=== PATIENT | male | born 1955 | race Caucasian/White ===

== ENCOUNTER 2025-06-22 19:32 | Inpatient (IN) | payer MEDICARE, MEDICAID ==
[~2025-06-22] VITALS: Ht 182.9 cm; Wt 80.0 kg
[2025-06-22 20:42] VITALS: PULSE 69; RESP 14; O2SAT 96
[2025-06-22 20:59] LABS: Hematocrit 31.6 % (41.0-53.0); Hemoglobin 10.5 g/dL (13.5-17.5); Mean Corpuscular Hemoglobin 27.6 pg (28.0-32.0); Mean Corpuscular Volume 83.1 fL (80.0-100.0); Nucleated Red Blood Cells % 0.0 %
--- NOTE | 2025-06-22 20:59 | DVH ---
EXAM: XY CHEST PORTABLE HISTORY: LEG SWELLING TECHNIQUE: 1 view of the chest COMPARISON: None FINDINGS/IMPRESSION: LUNGS: No pleural effusion, consolidation, or pneumothorax MEDIASTINUM: Unremarkable BONES: No acute osseous abnormality OTHER: None
[2025-06-22 21:19] LABS: Alanine Aminotransferase 13 U/L (7-40); Albumin 3.9 g/dL (3.2-4.8); Alkaline Phosphatase 65 U/L (46-116); Anion Gap 8 (5-15); BUN/Creatinine Ratio 17.2 (10.0-20.0); Blood Urea Nitrogen 23 mg/dL (9-23); Calcium 8.8 mg/dL (8.7-10.4); Carbon Dioxide 28 mmol/L (20-31); Chloride 102 mmol/L (98-107); Glucose 99 mg/dL (74-106); Potassium 4.2 mmol/L (3.5-5.1); Sodium 138 mmol/L (136-145); Total Protein 6.6 g/dL (5.7-8.2)
[2025-06-22 21:21] LABS: Bilirubin, Total 0.2 mg/dL (0.2-1.0)
--- NOTE | 2025-06-22 21:33 | ED.PDOC ---
Musculoskeletal HPI Comments HPI: 69 y/o M, with PMHx of Parkinson's, Schizophrenia, Bipolar disorder, CKF, and HLD is BIBA for CC of extremity swelling. EMS reports, patient is coming from [facility] where he was transferred as per for admission d/t bilateral lower extremity swelling with associated unsteady gait x7days. At this time patient has no complaints. No other symptoms or modifying factors are obtainable at this time. Initial Vitals BP: HR: RR: O2 Sat: Temp: Past Medical history: Parkinson's, Schizophrenia, Bipolar disorder, CKF, HLD Past Surgical history: DENIES ANY Medications: DENIES ANY Social History: Denies smoking, ETOH, and drug use. Allergies: NKDA HPI: Poor Historian. Patient sent from facility to our hospital per Dr. Porter to be admitted to the hospital for further evaluation and treatment of bilateral lower extremity edema. Patient himself denies any symptoms or distress. REVIEW OF SYSTEMS: CONSTITUTIONAL: Denies acute: fever, diaphoresis, chills, generalized weakness. HEAD: Denies acute: headache, photophobia Eyes: Denies acute: Double vision, vision loss, eye pain, eye discharge. EARS: Denies acute: tinnitus, hearing loss, ear discharge, ear pain, THROAT: Denies acute: sore throat, swelling, difficulty swallowing , pain with swallowing, change in voice. NECK: Denies acute: neck pain, neck swelling, stiff neck. HEART: Denies acute : chest pain, palpitations, LUNGS: Denies acute: SOB, wheezing, cough, hemoptysis ABDOMEN: Denies acute: abdominal pain, Nausea, Vomiting, diarrhea, melena , hematemesis, hematochezia SKIN: Denies acute: rash, redness, lesions, itchiness. EXTREMITIES: Denies acute: calf pain, numbness, tingling, weakness, denies pain in extremity. Denies acute: Low back pain. Neuro: Denies acute: focal neurological deficit, motor or sensory focal neurological deficit, tremors, seizure like activity, confusion, dizziness, change in mental status, loss of bowel or bladder function, cauda equina like symptoms. : Denies acute: dysuria, hematuria, flank pain, increase in urinary frequency. PSYCH: Denies acute: hallucination, suicidal ideation, homicidal ideation. PHYSICAL EXAM: General: ----no----acute distress, awake and alert. Head: normocephalic, atraumatic. Neck: supple, trachea is midline, no swelling. Throat: Normal phonation. Eyes:, no erythema, no purulent discharge, no proptosis, no icterus. Heart: regular rate, regular rhythm, no significant murmur appreciated. Lungs: no apparent respiratory distress, Able to speak in full sentences. No wheezing, no rhonchi, no crackles. No stridors Clear to auscultation bilaterally. Abdomen: non tender to palpation, non distended, soft, no guarding, no rebound, + bowel sounds. Neuro: Awake, Alert, oriented to name, self, situation, follows commands GCS=15. Speech is normal. Skin: no petechia, no purpura, no cyanosis, non-pale, not jaundice. Lower extremities: --2/4 bilateral - Pitting edema no deformity, no focal swelling, no calf TTP. Makes eye contact. Face: no apparent facial droop. ED COURSE: DISCLAIMER: This medical document was created using an electronic medical record system with voice recognition software and computerized dictation system. Although this document has been carefully reviewed, there might still be some phonetic and typographical errors. Occasional wrong-word or "sound-alike" substitutions may have occurred due to the inherent limitations of voice recognition software. These areas are purely typographical due to imperfections of the software prog janel and do not reflect any compromise in the patient's medical care. Please read the chart carefully and recognize, using context, where these substitutions have occurred. Chief Complaint: Extremity Swelling Time Seen by MD: 21:20 Reviewed Notes: Nurses Notes, Shore Man Notes, Medications, Allergies Allergies: Coded Allergies: NO KNOWN ALLERGIES (Unverified , 06/22/25) Home Meds Reported Medications Ferrous Sulfate (Ferrous Sulfate) 325 Mg Tab, 325 MG PO BIDWM for 30 Days, MG 06/23/25 Docusate Sodium (Colace) 100 Mg Cap, 1 CAP PO BID, #30 CAP 06/23/25 Divalproex Sodium (Depakote Er) 250 Mg Tab, 1 TAB PO TIDWM, #30 TAB 2 Refills 06/23/25 Benztropine Mesylate (Benztropine Mesylate) 0.5 Mg Tab, 0.5 MG PO BID, MG 06/23/25 Atorvastatin Calcium (ATORVASTATIN CALCIUM) 20 Mg Tab, 1 TAB PO HS, #30 TAB 5 Refills 06/23/25 Ascorbic Acid (Ascorbic Acid) 500 Mg Tab, 500 MG PO DAILY for 30 Days, MG 06/23/25 Amlodipine Besylate (Amlodipine Besylate) 5 Mg Tab, 10 MG PO DAILY for 30 Days, MG 06/23/25 Aripiprazole (Abilify) 20 Mg Tab, 30 MG PO DAILY, TAB 06/23/25 Information Source: Patient, Emergency Med Personnel Mode of Arrival: EMS Location: Bilateral Extremity Location: Leg Timing: Days Prehospital treatment: None Severity: Moderate Able to Move Extremity: No Bear Weight: Limited Pain: None Mechanism: Spontaneous Circumstances: Spontaneous Onset of Symptoms: Spontaneous Symptoms: Swelling DVT Risk Factors: NONE Last Tetanus: Unknown Associated signs and symptoms: Swelling Was a procedure done? Was a procedure done?: No Differential Diagnosis EXT Differential Diagnosis: CHF, Deep Vein Thrombosis, Neurovascular injury X-Ray, Labs, Meds, VS Vital Signs Date Time Temp Pulse Resp B/P (MAP) Pulse Ox O2 Delivery O2 Flow Rate FiO2 06/22/25 20:42 69 14 107/60 (76) 96 06/22/25 20:42 69 14 96 Room Air* 0 21 06/22/25 20:00 64 06/22/25 19:35 98.2 74 16 101/54 97 98.2 Lab Test 06/22/25 21:51 06/22/25 21:40 06/22/25 20:43 Range/Units Urine Color Light-yellow Yellow Urine Clarity Clear Clear Urine pH 6.0 5.0-9.0 Urine Specific [place] 1.011 1.001-1.035 Urine Protein Negative Negative Urine Ketones Negative Negative Urine Blood Negative Negative /uL Urine Nitrite Negative Negative Urine Bilirubin Negative Negative Urine Urobilinogen Normal Negative mg/dL Urine Leukocyte Esterase Negative Negative /uL Urine RBC None seen 0 - 3 /hpf Urine Microscopic WBC < 1 0-3 /HPF Urine Squamous Epithelial Cells None seen <5 /hpf Urine Bacteria None seen None Seen /hpf Urine Hyaline Casts Few 0 - 2 /lpf Urine Glucose Normal Normal mg/dL Troponin I High Sensitivity 14 13 </=54 ng/L Thyroid Stimulating Hormone (TSH) 3.16 0.55-4.78 uIU/mL White Blood Count 7.6 4.4-10.8 10^3/uL Red Blood Count 3.80 L 4.5-5.90 10^6/uL Hemoglobin 10.5 L 13.5-17.5 g/dL Hematocrit 31.6 L 41.0-53.0 % Mean Corpuscular Volume 83.1 80.0-100.0 fL Mean Corpuscular Hemoglobin 27.6 L 28.0-32.0 pg Mean Corpuscular Hemoglobin Concent 33.2 32.0-36.0 g/dL Red Cell Distribution Width 14.2 11.8-14.3 % Platelet Count 271 140-450 10^3/uL Mean Platelet Volume 7.3 6.9-10.8 fL Neutrophils (%) (Auto) 64.4 37.0-80.0 % Lymphocytes (%) (Auto) 21.5 10.0-50.0 % Monocytes (%) (Auto) 10.7 0.0-12.0 % Eosinophils (%) (Auto) 2.5 0.0-7.0 % Basophils (%) (Auto) 0.9 0.0-2.0 % Neutrophils # (Auto) 4.9 1.6-8.6 10 ^3/uL Lymphocytes # (Auto) 1.6 0.4-5.4 10 ^3/uL Monocytes # (Auto) 0.8 0-1.3 10 ^3/uL Eosinophils # (Auto) 0.2 0-0.8 10 ^3/uL Basophils # (Auto) 0.1 0-0.2 10 ^3/uL Nucleated Red Blood Cells 0.0 % D-Dimer, Quantitative 0.26 0.0-0.49 mg/L FEU Sodium Level 138 136-145 mmol/L Potassium Level 4.2 3.5-5.1 mmol/L Chloride Level 102 98-107 mmol/L Carbon Dioxide Level 28 20-31 mmol/L Anion Gap 8 5-15 Blood Urea Nitrogen 23 9-23 mg/dL Creatinine 1.34 H 0.700-1.30 mg/dL Glomerular Filtration Rate Calc 57 >90 mL/min BUN/Creatinine Ratio 17.2 10.0-20.0 Serum Glucose 99 74-106 mg/dL Lactic Acid Level 1.0 0.4-2.0 mmol/L Calcium Level 8.8 8.7-10.4 mg/dL Total Bilirubin 0.2 0.2-1.0 mg/dL Aspartate Amino Transferase (AST) 21 13-40 U/L Alanine Aminotransferase (ALT) 13 7-40 U/L Alkaline Phosphatase 65 46-116 U/L C-Reactive Protein High Sensitivity 0.11 <1.0 mg/dL B-Type Natriuretic Peptide 92.62 0-100 pg/mL Total Protein 6.6 5.7-8.2 g/dL Albumin 3.9 3.2-4.8 g/dL [place] [address] Ph: [phone] DIAGNOSTIC IMAGING Diagnostic Imaging Report : [id number] Signed PATIENT: SHIN BROWNACCT: [id number] UNIT: [id number] : 1955 LOC: ER ROOM / BED: / AGE / SEX: 69 / M ADM STATUS: REG ER SERVICE 24 ORDERING PHYSICIAN: OCTAVIO BIRCH DO PROCEDURE(s): CXRP - CHEST PORTABLE REASON: LEG SWELLING ORDER NUMBER(s): [id number], ACCESSION NUMBER(s): [id number] EXAM: XY CHEST PORTABLE HISTORY: LEG SWELLING TECHNIQUE: 1 view of the chest COMPARISON: None FINDINGS/IMPRESSION: LUNGS: No pleural effusion, consolidation, or pneumothorax MEDIASTINUM: Unremarkable BONES: No acute osseous abnormality OTHER: None ATED BY: OLIVER CARRION MD DICTATED DATE/TIME: 06/22/252056 SIGNED BY: OLIVER CARRION MD SIGNED DATE/TIME: 06/22/252056 CC: Time of 1ST Reevaluation: 21:50 Reevaluation 1ST: Unchanged Patient Education/Counseling: Diagnosis, Treatment Family Education/Counseling: No Family Present Comments MDM: patient presented with the above HPI.---leg edema---workup was initiated. patient was found with the above mentioned diagnosis. the following medications were ordered: please refer to order lists of meds and tests obtained by myself Dr. Birch. Patient ED course and VS have been stabilized. Patient has been reassessed in the ED and remained in a stable condition. Pertinent incidental findings were discussed with the patient and/or family. Patient/family voices understanding and is agreeable with plan. Patient has been observed in the ED adequate length of time to insure improvement/stability. Escalation of care considered: Consideration of escalation to observation or admission Patient was ADMITTED to the medicine team for further evaluation and treatment of their presentation. All the reports of any imaging studies that were ordered by myself were reviewed by myself. Sepsis Sepsis Reasesment Focused Exam Orders: Laboratory Tests 06/22/25 20:43: Lactic Acid Level 1.0 Departure 1 Departure Time of Disposition: 21:52 Impression: Primary Impression: Bilateral leg edema Disposition: ADMITTED INPATIENT Admit to: [facility] Condition: Guarded Discharged With: Self Critical Care Note Critical Care Time?: No I personally scribed for OCTAVIO BIRCH DO ([email or web address]) on 06/22/25 at 21:33. Electronically submitted by Evelyn Nixon ([email or web address]). I personally scribed for OCTAVIO BIRCH DO ([email or web address]) on 06/22/25 at 21:40. Electronically submitted by Evelyn Nixon ([email or web address]). OCTAVIO BIRCH DO Jun 22, 2025 21:33
[2025-06-22 22:27] LABS: Urine Protein, UAD Negative (Negative)
--- NOTE | 2025-06-22 22:59 | DVH ---
Bilateral lower extremity venous duplex Clinical History: swelling Comparison: None Findings: Duplex Doppler evaluation of the deep venous systems of both lower extremities from the common femora l veins to the popliteal veins including color Doppler and spectral/pulsed waveform analysis was perf ormed. RIGHT SIDE: The common femoral vein demonstrates appropriate compressibility and waveform variability. There is compressibility/patency of the great saphenous vein at the proximal thigh. The femoral vein demonstrates appropriate compressibility and waveform variability. The deep femoral vein demonstrates appropriate compressibility and waveform variability. The popliteal vein demonstrates appropriate compressibility and waveform variability. LEFT SIDE: The common femoral vein demonstrates appropriate compressibility and waveform variability. There is compressibility/patency of the great saphenous vein at the proximal thigh. The femoral vein demonstrates appropriate compressibility and waveform variability. The deep femoral vein demonstrates appropriate compressibility and waveform variability. The popliteal vein demonstrates appropriate compressibility and waveform variability. IMPRESSION: 1. No right or left femoropopliteal venous thrombosis.
[2025-06-22] MEDS ORDERED: ONDANSETRON HCL 4 MG/2 ML VIAL IV PRN (23:30)
[2025-06-22] MEDS ORDERED: ACETAMINOPHEN 325 MG TAB PO PRN (23:30)
[2025-06-23] VITALS (7 sets, daily range): BP systolic 98–147; BP diastolic 66–89; PULSE 55–77; RESP 15–18; TEMP 98–98.7; O2SAT 96–98
[2025-06-23] MEDS: FUROSEMIDE 20 MG/2 ML VIAL IV ONE (02:33)
[2025-06-23] MEDS ORDERED: ARIP20TA4 PO (04:30)
[2025-06-23] MEDS ORDERED: DIVA-92 PO (04:49)
[2025-06-23] MEDS ORDERED: ATOR20TA50 PO (04:49)
[2025-06-23] MEDS ORDERED: BENZ0.5T PO (04:49)
[2025-06-23] MEDS ORDERED: FERR325T24 PO (04:49)
[2025-06-23] MEDS ORDERED: ASCO500T16 PO (04:49)
[2025-06-23] MEDS ORDERED: DOCU-94 PO (04:49)
[2025-06-23] MEDS ORDERED: AMLO1TAB22 PO (04:49)
--- NOTE | 2025-06-23 04:50 | DVHHP2 ---
History of Present Illness Reason for Visit: Leg swelling History of Present Illness 69-year-old male presents for evaluation of leg swelling. Patient presents with a seven day history of bilateral lower extremity swelling. Patient denies tenderness. No fever or chills. Denies shortness of breath or chest pain. No history of congestive heart failure. Past Medical History Schizophrenia, bipolar, Parkinson's disease, chronic kidney disease, hypertension Past Surgical History Denies Family History Noncontributory Smoke: No ALCOHOL: none Drugs: None Lives: with Family Review of Systems Review of Systems Review of systems are currently negative otherwise addressed in HPI. Allergies: Coded Allergies: NO KNOWN ALLERGIES (Unverified , 06/22/25) Medications Current Medications Medications Dose Ordered Sig/Mauricio Route Start Time Stop Time Status Last Admin Dose Admin Amlodipine Besylate 10 mg DAILY PO 06/23/25 10:00 Divalproex Sodium 250 mg BID PO 06/23/25 10:00 Atorvastatin Calcium 20 mg HS PO 06/23/25 22:00 Furosemide 20 mg DAILY PO 06/23/25 10:00 Ondansetron HCl 4 mg Q4HP PRN IV 06/22/25 23:30 Enoxaparin Sodium 40 mg DAILY SC 06/23/25 10:00 Acetaminophen 650 mg Q6HP PRN PO 06/22/25 23:30 Exam Vital Signs Vital Signs Date Time Temp Pulse Resp B/P (MAP) Pulse Ox O2 Delivery O2 Flow Rate FiO2 06/23/25 03:33 75 18 97 Room Air* 0 21 06/23/25 02:33 116/67 06/22/25 23:44 98.5 98.5 Exam Gen: 69-year-old male in no apparent distress Skin: Warm, dry, normal color and texture, no rash. HEENT: Normocephalic atraumatic, mucous membranes moist and pink. Neck: Cervical and supraclavicular nodes normal without enlargement, trachea is midline, thyroid gland is normal without masses. Pulmonary: Clear to auscultation and percussion bilaterally. Cardiac: Regular rate and rhythm. No murmur Abdomen: Soft, nontender, nondistended, bowel sounds present all 4 quadrants, no guarding, no rigidity, no organomegaly. Extremities: No cyanosis, clubbing, no edema Neuro: Cranial nerves II through XII grossly intact, normal affect and speech, no focal motor deficits. Labs/Xrays ORDERING PHYSICIAN: OCTAVIO BIRCH DO PROCEDURE(s): CXRP - CHEST PORTABLE REASON: LEG SWELLING ORDER NUMBER(s): [id number], ACCESSION NUMBER(s): [id number] EXAM: XY CHEST PORTABLE HISTORY: LEG SWELLING TECHNIQUE: 1 view of the chest COMPARISON: None FINDINGS/IMPRESSION: LUNGS: No pleural effusion, consolidation, or pneumothorax MEDIASTINUM: Unremarkable BONES: No acute osseous abnormality OTHER: None RING PHYSICIAN: OCTAVIO BIRCH DO PROCEDURE(s): BLDVT - BiLat Lower DVT REASON: swelling ORDER NUMBER(s): [id number], ACCESSION NUMBER(s): [id number] Bilateral lower extremity venous duplex Clinical History: swelling Comparison: None Findings: Duplex Doppler evaluation of the deep venous systems of both lower extremities from the common femoral veins to the popliteal veins including color Doppler and spectral/pulsed waveform analysis was performed. RIGHT SIDE: The common femoral vein demonstrates appropriate compressibility and waveform variability. There is compressibility/patency of the great saphenous vein at the proximal thigh. The femoral vein demonstrates appropriate compressibility and waveform variability. The deep femoral vein demonstrates appropriate compressibility and waveform variability. The popliteal vein demonstrates appropriate compressibility and waveform variability. LEFT SIDE: The common femoral vein demonstrates appropriate compressibility and waveform variability. There is compressibility/patency of the great saphenous vein at the proximal thigh. The femoral vein demonstrates appropriate compressibility and waveform variability. The deep femoral vein demonstrates appropriate compressibility and waveform variability. The popliteal vein demonstrates appropriate compressibility and waveform variability. IMPRESSION: 1. No right or left femoropopliteal venous thrombosis. Labs Test 06/22/25 21:51 06/22/25 21:40 06/22/25 20:43 Range/Units Urine Color Light-yellow Yellow Urine Clarity Clear Clear Urine pH 6.0 5.0-9.0 Urine Specific [place] 1.011 1.001-1.035 Urine Protein Negative Negative Urine Ketones Negative Negative Urine Blood Negative Negative /uL Urine Nitrite Negative Negative Urine Bilirubin Negative Negative Urine Urobilinogen Normal Negative mg/dL Urine Leukocyte Esterase Negative Negative /uL Urine RBC None seen 0 - 3 /hpf Urine Microscopic WBC < 1 0-3 /HPF Urine Squamous Epithelial Cells None seen <5 /hpf Urine Bacteria None seen None Seen /hpf Urine Hyaline Casts Few 0 - 2 /lpf Urine Glucose Normal Normal mg/dL Troponin I High Sensitivity 14 </=54 ng/L Thyroid Stimulating Hormone (TSH) 3.16 0.55-4.78 uIU/mL White Blood Count 7.6 4.4-10.8 10^3/uL Red Blood Count 3.80 L 4.5-5.90 10^6/uL Hemoglobin 10.5 L 13.5-17.5 g/dL Hematocrit 31.6 L 41.0-53.0 % Mean Corpuscular Volume 83.1 80.0-100.0 fL Mean Corpuscular Hemoglobin 27.6 L 28.0-32.0 pg Mean Corpuscular Hemoglobin Concent 33.2 32.0-36.0 g/dL Red Cell Distribution Width 14.2 11.8-14.3 % Platelet Count 271 140-450 10^3/uL Mean Platelet Volume 7.3 6.9-10.8 fL Neutrophils (%) (Auto) 64.4 37.0-80.0 % Lymphocytes (%) (Auto) 21.5 10.0-50.0 % Monocytes (%) (Auto) 10.7 0.0-12.0 % Eosinophils (%) (Auto) 2.5 0.0-7.0 % Basophils (%) (Auto) 0.9 0.0-2.0 % Neutrophils # (Auto) 4.9 1.6-8.6 10 ^3/uL Lymphocytes # (Auto) 1.6 0.4-5.4 10 ^3/uL Monocytes # (Auto) 0.8 0-1.3 10 ^3/uL Eosinophils # (Auto) 0.2 0-0.8 10 ^3/uL Basophils # (Auto) 0.1 0-0.2 10 ^3/uL Nucleated Red Blood Cells 0.0 % D-Dimer, Quantitative 0.26 0.0-0.49 mg/L FEU Sodium Level 138 136-145 mmol/L Potassium Level 4.2 3.5-5.1 mmol/L Chloride Level 102 98-107 mmol/L Carbon Dioxide Level 28 20-31 mmol/L Anion Gap 8 5-15 Blood Urea Nitrogen 23 9-23 mg/dL Creatinine 1.34 H 0.700-1.30 mg/dL Glomerular Filtration Rate Calc 57 >90 mL/min BUN/Creatinine Ratio 17.2 10.0-20.0 Serum Glucose 99 74-106 mg/dL Lactic Acid Level 1.0 0.4-2.0 mmol/L Calcium Level 8.8 8.7-10.4 mg/dL Total Bilirubin 0.2 0.2-1.0 mg/dL Aspartate Amino Transferase (AST) 21 13-40 U/L Alanine Aminotransferase (ALT) 13 7-40 U/L Alkaline Phosphatase 65 46-116 U/L C-Reactive Protein High Sensitivity 0.11 <1.0 mg/dL B-Type Natriuretic Peptide 92.62 0-100 pg/mL Total Protein 6.6 5.7-8.2 g/dL Albumin 3.9 3.2-4.8 g/dL SEPSIS Sepsis Screen Date sepsis recognized/suspect: Jun 22, 2025 Time Sepsis recognized/suspect: 2046 Recent Procedure: No On Antibiotic Therapy: No Respiratory Rate >20: No Heart Rate >90: No Temp<36 C (96.8 F) or >38.3 C: No SBP <90 or MAP <65 mmHG: No New Acute Mental Status Change: No Is the patient on CPAP, BIPAP,: No Physician Orders Bilat Lower Dvt (06/22/25 21:54) Amlodipine Tablet (Norvasc Tablet) (06/23/25 10:00) Divalproex Dr Tablet (Depakote "Dr" Tabl (06/23/25 10:00) Atorvastatin (Lipitor) (06/23/25 22:00) Furosemide Tablet (Lasix Tablet) (06/23/25 10:00) Basic Metabolic Panel (06/23/25 04:00) Admit (06/22/25 23:21) Ondansetron Hcl (Zofran) (06/22/25 23:30) Enoxaparin Sodium (Lovenox) (06/23/25 10:00) Cardiac Diet-2gna,Lofat,Lochol (06/23/25 Breakfast) Echo 2d Mode Cardiac Dop (06/22/25 23:21) Condition: Stable (06/22/25 23:21) Acetaminophen Tablet (Tylenol Tablet) (06/22/25 23:30) Bedrest With Bathroom Privileg (06/22/25 23:21) Mrsa Screen (06/23/25 03:34) Vital Signs Date Time Temp Pulse Resp B/P (MAP) Pulse Ox O2 Delivery O2 Flow Rate FiO2 06/23/25 03:33 75 18 97 Room Air* 0 21 06/23/25 02:33 116/67 06/23/25 01:02 54 06/22/25 23:46 51 14 116/67 (83) 95 06/22/25 23:44 98.5 51 14 116/67 (83) 95 98.5 Laboratory Tests Test 06/22/25 20:43 Lactic Acid Level 1.0 mmol/L (0.4-2.0) White Blood Count 7.6 10^3/uL (4.4-10.8) Medications Medications Dose Ordered Sig/Mauricio Route Start Time Stop Time Status Last Admin Dose Admin Furosemide 20 mg ONCE ONCE IV 06/22/25 23:30 06/22/25 23:31 DC 06/23/25 02:33 20 MG Assessment/Plan Assessment/Plan Assessment Bilateral lower extremity edema Hypertension Plan Admit the patient to [facility] to the hospitalist Lasix trial Echocardiogram pending Resume home medications Continue treatment per orders. Plan discussed with: Patient My Orders Orders - KING LUONG Procedure Category Date Status Time Amlodipine Tablet PHA 06/23/25 In Process (Norvasc Tablet) 10:[address] Tablet PHA 06/23/25 In Process (Depakote "Dr" Tabl 10:00 Atorvastatin (Lipitor) PHA 06/23/25 In Process 22:00 Furosemide Tablet PHA 06/23/25 In Process (Lasix Tablet) 10:00 Basic Metabolic Panel LAB 06/23/25 Logged 04:00 Admit ADMIT 06/22/25 Transmitted 23:21 Ondansetron Hcl PHA 06/22/25 In Process (Zofran) 23:30 Enoxaparin Sodium PHA 06/23/25 In Process (Lovenox) 10:00 Cardiac DIET 06/23/25 Transmitted Diet-2gna,Lofat,Lochol Breakfast Echo 2d Mode Cardiac US 06/22/25 Logged DOP 23:21 Condition: Stable TANVI 06/22/25 In Process 23:21 Acetaminophen Tablet PHA 06/22/25 In Process (Tylenol Tablet) 23:30 Bedrest With Bathroom TANVI 06/22/25 In Process Privileg 23:21 Mrsa Screen LIU 06/23/25 Uncollected 03:34 Date of Service: Jun 22, 2025 Billing Provider: KING LUONG Common Visit Codes: [id number] INP/OBS CARE (MOD) KING LUONG Jun 23, 2025 04:50
[2025-06-23 06:25] LABS: Chloride 102 mmol/L (98-107); Potassium 3.6 mmol/L (3.5-5.1); Sodium 140 mmol/L (136-145)
[2025-06-23 06:26] LABS: Anion Gap 11 (5-15); Calcium 9.2 mg/dL (8.7-10.4); Carbon Dioxide 27 mmol/L (20-31)
[2025-06-23 06:31] LABS: BUN/Creatinine Ratio 15.4 (10.0-20.0); Blood Urea Nitrogen 18 mg/dL (9-23); Glucose 89 mg/dL (74-106)
[2025-06-23] MEDS: ENOXAPARIN SOD 40 MG/0.4 ML SYRINGE SC SCH (09:28)
[2025-06-23] MEDS: FUROSEMIDE 20 MG TAB PO SCH (09:29)
--- NOTE | 2025-06-23 14:55 | DVHPN2 ---
Reviewed: Care Plan, H&P, Labs, Medications, Previous Orders, Radiology Changes from previous H/P or p: No Changes Objective Vitals Vital Signs Date Time Temp Pulse Resp B/P (MAP) Pulse Ox O2 Delivery O2 Flow Rate FiO2 06/23/25 12:50 98.0 57 16 147/81 (103) 96 98.0 06/23/25 08:30 Room Air* 0 21 Intake/Output Intake and Output 06/23/25 07:00 Intake Total 0 ml Output Total 800 ml Balance -800 ml Intake Oral 0 ml Output Urine Total 800 ml # Voids 1 Medications Current Medications Medications Dose Ordered Sig/Mauricio Route Start Time Stop Time Status Last Admin Dose Admin Amlodipine Besylate 10 mg DAILY PO 06/23/25 10:00 06/23/25 09:29 10 MG Divalproex Sodium 250 mg BID PO 06/23/25 10:00 06/23/25 09:30 250 MG Atorvastatin Calcium 20 mg HS PO 06/23/25 22:00 Furosemide 20 mg DAILY PO 06/23/25 10:00 06/23/25 09:29 20 MG Ondansetron HCl 4 mg Q4HP PRN IV 06/22/25 23:30 Enoxaparin Sodium 40 mg DAILY SC 06/23/25 10:00 06/23/25 09:28 40 MG Acetaminophen 650 mg Q6HP PRN PO 06/22/25 23:30 Laboratory Results Laboratory Tests 06/22/25 20:43 06/23/25 06:06 Chemistry Test 06/22/25 20:43 06/23/25 06:06 Albumin 3.9 g/dL (3.2-4.8) Calcium Level 8.8 mg/dL (8.7-10.4) 9.2 mg/dL (8.7-10.4) Total Protein 6.6 g/dL (5.7-8.2) Coagulation Test 06/22/25 20:43 D-Dimer, Quantitative 0.26 mg/L FEU (0.0-0.49) Cardiac Markers Test 06/22/25 20:43 B-Type Natriuretic Peptide 92.62 pg/mL (0-100) LFT Test 06/22/25 20:43 Alanine Aminotransferase (ALT) 13 U/L (7-40) Alkaline Phosphatase 65 U/L (46-116) Aspartate Amino Transferase (AST) 21 U/L (13-40) Total Bilirubin 0.2 mg/dL (0.2-1.0) HgA1c, TSH Test 06/22/25 21:40 Thyroid Stimulating Hormone (TSH) 3.16 uIU/mL (0.55-4.78) Urinalysis Test 06/22/25 21:51 Urine Color Light-yellow (Yellow) Urine Clarity Clear (Clear) Urine pH 6.0 (5.0-9.0) Urine Specific [place] 1.011 (1.001-1.035) Urine Protein Negative (Negative) Urine Ketones Negative (Negative) Urine Blood Negative /uL (Negative) Urine Nitrite Negative (Negative) Urine Bilirubin Negative (Negative) Urine Urobilinogen Normal mg/dL (Negative) Urine Leukocyte Esterase Negative /uL (Negative) Urine RBC None seen /hpf (0 - 3) Urine Microscopic WBC < 1 /HPF (0-3) Urine Squamous Epithelial Cells None seen /hpf (<5) Urine Bacteria None seen /hpf (None Seen) Urine Hyaline Casts Few /lpf (0 - 2) Urine Glucose Normal mg/dL (Normal) Microbiology Microbiology Date/Time Source Procedure Growth Status 06/23/25 04:10 Nose MRSA Screen - Final Complete Labs and/or images reviewed: Labs reviewed by me, Image(s) reviewed by me Assessment/Plan Assessment/Plan Bilateral lower extremity edema: Lasix, echo result pending Hypertension: Amlodipine Schizophrenia: Depakote Time spent 46 minutes Plan discussed with: Patient Date of Service: Jun 23, 2025 Billing Provider: SHAE STALEY MD Common Visit Codes: [id number] INP/OBS CARE(HIGH) SHAE STALEY MD Jun 23, 2025 14:55
[2025-06-23] MEDS: ATORVASTATIN 20 MG TAB PO SCH (21:42)
[2025-06-24] VITALS (7 sets, daily range): BP systolic 96–123; BP diastolic 60–82; PULSE 55–76; RESP 16–18; TEMP 97.5–98.7; O2SAT 96–99
--- NOTE | 2025-06-24 08:16 | DVHPN2 ---
Reviewed: Care Plan, H&P, Labs, Medications, Previous Orders, Radiology Changes from previous H/P or p: No Changes Objective Vitals Vital Signs Date Time Temp Pulse Resp B/P (MAP) Pulse Ox O2 Delivery O2 Flow Rate FiO2 06/24/25 05:00 98.6 63 17 109/76 (87) 98 98.6 06/23/25 20:00 Room Air* 0 21 Intake/Output Intake and Output 06/24/25 07:00 Intake Total 800 ml Balance 800 ml Intake Oral 800 ml # Voids 3 # Bowel Movements 2 Medications Current Medications Medications Dose Ordered Sig/Mauricio Route Start Time Stop Time Status Last Admin Dose Admin Amlodipine Besylate 10 mg DAILY PO 06/23/25 10:00 06/23/25 09:29 10 MG Divalproex Sodium 250 mg BID PO 06/23/25 10:00 06/23/25 21:42 250 MG Atorvastatin Calcium 20 mg HS PO 06/23/25 22:00 06/23/25 21:42 20 MG Furosemide 20 mg DAILY PO 06/23/25 10:00 06/23/25 09:29 20 MG Ondansetron HCl 4 mg Q4HP PRN IV 06/22/25 23:30 Enoxaparin Sodium 40 mg DAILY SC 06/23/25 10:00 06/23/25 09:28 40 MG Acetaminophen 650 mg Q6HP PRN PO 06/22/25 23:30 Laboratory Results Laboratory Tests 06/22/25 20:43 06/23/25 06:06 Urinalysis Test 06/22/25 21:51 Urine Color Light-yellow (Yellow) Urine Clarity Clear (Clear) Urine pH 6.0 (5.0-9.0) Urine Specific [place] 1.011 (1.001-1.035) Urine Protein Negative (Negative) Urine Ketones Negative (Negative) Urine Blood Negative /uL (Negative) Urine Nitrite Negative (Negative) Urine Bilirubin Negative (Negative) Urine Urobilinogen Normal mg/dL (Negative) Urine Leukocyte Esterase Negative /uL (Negative) Urine RBC None seen /hpf (0 - 3) Urine Microscopic WBC < 1 /HPF (0-3) Urine Squamous Epithelial Cells None seen /hpf (<5) Urine Bacteria None seen /hpf (None Seen) Urine Hyaline Casts Few /lpf (0 - 2) Urine Glucose Normal mg/dL (Normal) Microbiology Microbiology Date/Time Source Procedure Growth Status 06/23/25 04:10 Nose MRSA Screen - Final Complete Labs and/or images reviewed: Labs reviewed by me, Image(s) reviewed by me Assessment/Plan Assessment/Plan Bilateral lower extremity edema: Lasix, echo result pending Hypertension: Amlodipine Hypercholesterolemia: Lipitor 20 mg p.o. daily Chronic anemia: Iron tablets 325 mg p.o. b.i.d. Schizophrenia: Depakote 250 mg PO TID, Abilify 20 mg p.o. daily, benztropine 0.5 mg p.o. b.i.d. Time spent 46 minutes Plan discussed with: Patient Date of Service: Jun 24, 2025 Billing Provider: SHAE STALEY MD Common Visit Codes: [id number] INP/OBS CARE(HIGH) SHAE STALEY MD Jun 24, 2025 08:16
[2025-06-24] MEDS: BENZTROPINE MESY 0.5 MG TAB PO SCH (09:30)
[2025-06-24] MEDS: FERROUS SULFATE 325mg EC TAB PO SCH (18:20)
[2025-06-25] VITALS (7 sets, daily range): BP systolic 97–132; BP diastolic 62–85; PULSE 54–80; RESP 14–18; TEMP 97.7–98.2; O2SAT 96–100
--- NOTE | 2025-06-25 07:46 | DVHPN2 ---
Reviewed: Care Plan, H&P, Labs, Medications, Previous Orders, Radiology Changes from previous H/P or p: No Changes Objective Vitals Vital Signs Date Time Temp Pulse Resp B/P (MAP) Pulse Ox O2 Delivery O2 Flow Rate FiO2 06/25/25 05:00 98.0 59 16 132/83 (99) 96 98.0 06/24/25 20:00 Room Air* 0 21 Intake/Output Intake and Output 06/25/25 06:59 Intake Total 950 ml Balance 950 ml Intake Oral 950 ml # Voids 3 # Bowel Movements 2 Medications Current Medications Medications Dose Ordered Sig/Mauricio Route Start Time Stop Time Status Last Admin Dose Admin Amlodipine Besylate 10 mg DAILY PO 06/23/25 10:00 06/24/25 09:29 10 MG Atorvastatin Calcium 20 mg HS PO 06/23/25 22:00 06/24/25 21:16 20 MG Furosemide 20 mg DAILY PO 06/23/25 10:00 06/24/25 09:30 20 MG Ondansetron HCl 4 mg Q4HP PRN IV 06/22/25 23:30 Enoxaparin Sodium 40 mg DAILY SC 06/23/25 10:00 06/24/25 09:28 40 MG Acetaminophen 650 mg Q6HP PRN PO 06/22/25 23:30 Divalproex Sodium 250 mg TID PO 06/24/25 08:15 06/25/25 05:35 250 MG Benztropine Mesylate 1 mg Q12HR PO 06/24/25 10:00 06/24/25 21:16 1 MG Patient Own Medication 20 mg DAILY PO 06/24/25 10:00 Ferrous Sulfate 325 mg BIDWM PO 06/24/25 18:00 06/24/25 18:20 325 MG Laboratory Results Laboratory Tests 06/22/25 20:43 06/23/25 06:06 Urinalysis Test 06/22/25 21:51 Urine Color Light-yellow (Yellow) Urine Clarity Clear (Clear) Urine pH 6.0 (5.0-9.0) Urine Specific [place] 1.011 (1.001-1.035) Urine Protein Negative (Negative) Urine Ketones Negative (Negative) Urine Blood Negative /uL (Negative) Urine Nitrite Negative (Negative) Urine Bilirubin Negative (Negative) Urine Urobilinogen Normal mg/dL (Negative) Urine Leukocyte Esterase Negative /uL (Negative) Urine RBC None seen /hpf (0 - 3) Urine Microscopic WBC < 1 /HPF (0-3) Urine Squamous Epithelial Cells None seen /hpf (<5) Urine Bacteria None seen /hpf (None Seen) Urine Hyaline Casts Few /lpf (0 - 2) Urine Glucose Normal mg/dL (Normal) Microbiology Microbiology Date/Time Source Procedure Growth Status 06/23/25 04:10 Nose MRSA Screen - Final Complete Labs and/or images reviewed: Labs reviewed by me, Image(s) reviewed by me Assessment/Plan Assessment/Plan Bilateral lower extremity edema: Lasix, echo result pending Hypertension: Amlodipine Hypercholesterolemia: Lipitor 20 mg p.o. daily Chronic anemia: Iron tablets 325 mg p.o. b.i.d. Schizophrenia: Depakote 250 mg PO TID, Abilify 20 mg p.o. daily, benztropine 0.5 mg p.o. b.i.d. Time spent 46 minutes Plan discussed with: Patient My Orders Orders - SHAE STALEY MD Procedure Category Date Status Time Divalproex Dr Tablet PHA 06/24/25 In Process (Depakote "Dr" Tabl 08:15 Benztropine Tablet PHA 06/24/25 In Process (Cogentin Tablet) 10:00 (Nf) Abilify PHA 06/24/25 In Process 10:00 Ferrous Sulfate Tablet PHA 06/24/25 In Process 18:00 Date of Service: Jun 25, 2025 Billing Provider: SHAE STALEY MD Common Visit Codes: [id number] INP/OBS CARE(HIGH) SHAE STALEY MD Jun 25, 2025 07:45
--- NOTE | 2025-06-25 12:42 | DVHSR ---
APPROVED REPORT EXAM: Two-dimensional and M-mode echocardiogram with Doppler and color Doppler. Blood Pressure: 131/89 mmHg INDICATION EF RISK FACTORS Height: 6', Weight: 156 DIMENSIONS LVDd4.9 (3.8-5.7cm)LA (2D)4.1 (1.9-4.0cm)Aortic Root3.6 (2.0-3.7cm) LVDs3.4 (2.5-4.0cm)LA (MM) (1.9-4.0cm)Aortic Cusp Exc2.0 (1.5-2.0cm) EF (%) 58.0 (55-70%)Rt. Atrium (1.9-4.0cm)Asc. Aorta3.3 cm IVSd1.1 (0.7-1.1cm)RV (D) (1.8-2.4cm) Mitral Valve MitralMitral Stenosis E/A ratio0.02D MVAcm2 Aortic Valve Aortic ValveAortic Stenosis LVOT Diameter2.3 (1.8-2.4cm)Doppler AVAcm2 Pulmonic Valve V20.75m/s Other Information Quality : Technically LimitedRhythm : Technically limited study due to body habitus and patient position. Conclusion Technically good study. Sinus rhythm. Left atrial enlargement with aortic root enlargement. Moderate mitral annular calcification and thickening of the base of the posterior mitral leaflet. Th e aortic valve is otherwise normal. The tricuspid and pulmonic normal. Left ventricular systolic performance is preserved at 60% with normal RV function. Dopplers unremarkable. No pericardial effusion masses or vegetations.
[2025-06-26 01:00] VITALS: BP 106/59; PULSE 68; RESP 18; TEMP 98.1; O2SAT 95
[2025-06-26 05:00] VITALS: BP 99/60; PULSE 62; RESP 18; TEMP 98.1; O2SAT 95
[2025-06-26 08:00] VITALS: PULSE 62; RESP 18; O2SAT 95
[2025-06-26 09:00] VITALS: BP 103/55; PULSE 62; RESP 16; TEMP 98.2; O2SAT 95
--- NOTE | 2025-06-26 09:27 | DVHPN2 ---
Reviewed: Care Plan, H&P, Labs, Medications, Previous Orders, Radiology Changes from previous H/P or p: No Changes Objective Vitals Vital Signs Date Time Temp Pulse Resp B/P (MAP) Pulse Ox O2 Delivery O2 Flow Rate FiO2 06/26/25 09:17 103/55 06/26/25 09:00 98.2 62 16 95 98.2 06/25/25 20:00 Room Air* 0 21 Intake/Output Intake and Output 06/26/25 07:00 Intake Total 2330 ml Balance 2330 ml Intake Oral 2330 ml # Voids 5 # Bowel Movements 1 Medications Current Medications Medications Dose Ordered Sig/Mauricio Route Start Time Stop Time Status Last Admin Dose Admin Amlodipine Besylate 10 mg DAILY PO 06/23/25 10:00 06/26/25 09:17 10 MG Atorvastatin Calcium 20 mg HS PO 06/23/25 22:00 06/25/25 21:45 20 MG Furosemide 20 mg DAILY PO 06/23/25 10:00 06/26/25 09:17 20 MG Ondansetron HCl 4 mg Q4HP PRN IV 06/22/25 23:30 Enoxaparin Sodium 40 mg DAILY SC 06/23/25 10:00 06/26/25 09:18 40 MG Acetaminophen 650 mg Q6HP PRN PO 06/22/25 23:30 Divalproex Sodium 250 mg TID PO 06/24/25 08:15 06/26/25 05:44 250 MG Benztropine Mesylate 1 mg Q12HR PO 06/24/25 10:00 06/26/25 09:18 1 MG Patient Own Medication 20 mg DAILY PO 06/24/25 10:00 Ferrous Sulfate 325 mg BIDWM PO 06/24/25 18:00 06/26/25 09:15 325 MG Laboratory Results Laboratory Tests 06/22/25 20:43 06/23/25 06:06 Urinalysis Test 06/22/25 21:51 Urine Color Light-yellow (Yellow) Urine Clarity Clear (Clear) Urine pH 6.0 (5.0-9.0) Urine Specific [place] 1.011 (1.001-1.035) Urine Protein Negative (Negative) Urine Ketones Negative (Negative) Urine Blood Negative /uL (Negative) Urine Nitrite Negative (Negative) Urine Bilirubin Negative (Negative) Urine Urobilinogen Normal mg/dL (Negative) Urine Leukocyte Esterase Negative /uL (Negative) Urine RBC None seen /hpf (0 - 3) Urine Microscopic WBC < 1 /HPF (0-3) Urine Squamous Epithelial Cells None seen /hpf (<5) Urine Bacteria None seen /hpf (None Seen) Urine Hyaline Casts Few /lpf (0 - 2) Urine Glucose Normal mg/dL (Normal) Microbiology Microbiology Date/Time Source Procedure Growth Status 06/23/25 04:10 Nose MRSA Screen - Final Complete Labs and/or images reviewed: Labs reviewed by me, Image(s) reviewed by me Assessment/Plan Assessment/Plan Bilateral lower extremity edema: Lasix, echo 60 percent ejection fraction Mild congestive heart failure: Lasix Hypertension: Amlodipine Hypercholesterolemia: Lipitor 20 mg p.o. daily Chronic anemia: Iron tablets 325 mg p.o. b.i.d. Schizophrenia: Depakote 250 mg PO TID, Abilify 20 mg p.o. daily, benztropine 0.5 mg p.o. b.i.d. Time spent 46 minutes Plan discussed with: Patient My Orders Orders - SHAE STALEY MD Procedure Category Date Status Time * [employer] CONS 06/26/25 Transmitted Consult Date of Service: Jun 26, 2025 Billing Provider: SHAE STALEY MD Common Visit Codes: [id number] INP/OBS CARE(HIGH) SHAE STALEY MD Jun 26, 2025 09:26
--- NOTE | 2025-06-26 09:29 | DVHDS2 ---
Discharge Summary Date of Admission Jun 22, 2025 at 23:21 Date of Discharge: Jun 26, 2025 Admitting Diagnosis Swelling of the feet Wounds: None Labs/Diagnostic Data: Laboratory Results Test 06/23/25 06:06 06/22/25 21:51 06/22/25 21:40 06/22/25 20:43 Sodium Level 140 mmol/L (136-145) Potassium Level 3.6 mmol/L (3.5-5.1) Chloride Level 102 mmol/L (98-107) Carbon Dioxide Level 27 mmol/L (20-31) Anion Gap 11 (5-15) Blood Urea Nitrogen 18 mg/dL (9-23) Creatinine 1.17 mg/dL (0.700-1.30) Glomerular Filtration Rate Calc 67 mL/min (>90) BUN/Creatinine Ratio 15.4 (10.0-20.0) Serum Glucose 89 mg/dL (74-106) Calcium Level 9.2 mg/dL (8.7-10.4) Urine Color Light-yellow (Yellow) Urine Clarity Clear (Clear) Urine pH 6.0 (5.0-9.0) Urine Specific [place] 1.011 (1.001-1.035) Urine Protein Negative (Negative) Urine Ketones Negative (Negative) Urine Blood Negative /uL (Negative) Urine Nitrite Negative (Negative) Urine Bilirubin Negative (Negative) Urine Urobilinogen Normal mg/dL (Negative) Urine Leukocyte Esterase Negative /uL (Negative) Urine RBC None seen /hpf (0 - 3) Urine Microscopic WBC < 1 /HPF (0-3) Urine Squamous Epithelial Cells None seen /hpf (<5) Urine Bacteria None seen /hpf (None Seen) Urine Hyaline Casts Few /lpf (0 - 2) Urine Glucose Normal mg/dL (Normal) Troponin I High Sensitivity 14 ng/L (</=54) Thyroid Stimulating Hormone (TSH) 3.16 uIU/mL (0.55-4.78) White Blood Count 7.6 10^3/uL (4.4-10.8) Red Blood Count 3.80 10^6/uL (4.5-5.90) Hemoglobin 10.5 g/dL (13.5-17.5) Hematocrit 31.6 % (41.0-53.0) Mean Corpuscular Volume 83.1 fL (80.0-100.0) Mean Corpuscular Hemoglobin 27.6 pg (28.0-32.0) Mean Corpuscular Hemoglobin Concent 33.2 g/dL (32.0-36.0) Red Cell Distribution Width 14.2 % (11.8-14.3) Platelet Count 271 10^3/uL (140-450) Mean Platelet Volume 7.3 fL (6.9-10.8) Neutrophils (%) (Auto) 64.4 % (37.0-80.0) Lymphocytes (%) (Auto) 21.5 % (10.0-50.0) Monocytes (%) (Auto) 10.7 % (0.0-12.0) Eosinophils (%) (Auto) 2.5 % (0.0-7.0) Basophils (%) (Auto) 0.9 % (0.0-2.0) Neutrophils # (Auto) 4.9 10 ^3/uL (1.6-8.6) Lymphocytes # (Auto) 1.6 10 ^3/uL (0.4-5.4) Monocytes # (Auto) 0.8 10 ^3/uL (0-1.3) Eosinophils # (Auto) 0.2 10 ^3/uL (0-0.8) Basophils # (Auto) 0.1 10 ^3/uL (0-0.2) Nucleated Red Blood Cells 0.0 % D-Dimer, Quantitative 0.26 mg/L FEU (0.0-0.49) Lactic Acid Level 1.0 mmol/L (0.4-2.0) Total Bilirubin 0.2 mg/dL (0.2-1.0) Aspartate Amino Transferase (AST) 21 U/L (13-40) Alanine Aminotransferase (ALT) 13 U/L (7-40) Alkaline Phosphatase 65 U/L (46-116) C-Reactive Protein High Sensitivity 0.11 mg/dL (<1.0) B-Type Natriuretic Peptide 92.62 pg/mL (0-100) Total Protein 6.6 g/dL (5.7-8.2) Albumin 3.9 g/dL (3.2-4.8) Other Laboratory Tests 06/23/25 06:06 06/22/25 20:43 Brief Hx & Hospital Course: 69-year-old male with a history of hypertension hypercholesterolemia chronic anemia schizophrenia [facility] for evaluation of bilateral lower extremity swelling. The patient was found to have 2+ bilateral leg edema echo 60 percent ejection fraction treated with the Lasix hypertension treated with the amlodipine hypercholesterolemia treated with Lipitor anemia treated with the iron tablets Depakote and Abilify and benztropine continued for schizophrenia he feels better and being discharged back to the [facility] Consults/Reason for consult None Operations or Procedures Venous ultrasound Echocardiogram Condition at Discharge: Fair Final Diagnosis/Problems List Bilateral lower extremity edema: Lasix, echo 60 percent ejection fraction Mild congestive heart failure: Lasix Hypertension: Amlodipine Hypercholesterolemia: Lipitor 20 mg p.o. daily Chronic anemia: Iron tablets 325 mg p.o. b.i.d. Schizophrenia: Depakote 250 mg PO TID, Abilify 20 mg p.o. daily, benztropine 0.5 mg p.o. b.i.d. Discharge Disposition: [facility] Facility Discharge Instruct/Medications Diet: Cardiac 2g Na,low cholest Activity: Light activity Follow Up/Referral: Follow up with the [facility] Dr Medications: see list Scheduled Amlodipine Besylate (Amlodipine Besylate), 10 MG PO DAILY, (Reported) Aripiprazole (Abilify), 30 MG PO DAILY, (Reported) Ascorbic Acid (Ascorbic Acid), 500 MG PO DAILY, (Reported) Atorvastatin Calcium (Atorvastatin Calcium), 1 TAB PO HS, (Reported) Benztropine Mesylate (Benztropine Mesylate), 0.5 MG PO BID, (Reported) Divalproex Sodium (Depakote Er), 1 TAB PO TIDWM, (Reported) Docusate Sodium (Colace), 1 CAP PO BID, (Reported) Ferrous Sulfate (Ferrous Sulfate), 325 MG PO BIDWM, (Reported) 36 (Time taken for discharge summary 36 minutes) Discharge Statement: "Patient was advised to return to the ER or call 911 if any headaches, dizziness, shortness of breath, chest pain, abdominal pain, bleeding, fevers, or worsening of medical condition. Patient was counseled about treatment plan, medications, possible side effects, patientverbalized understanding. All questions were answered to the best of my ability. This discharge took greater then 30 minutes in planning, reviewing documentation, counseling the patient, and discussing with other team members." ASSESSMENT ASSESSMENT Hospital Course Improved Assessment Bilateral lower extremity edema: Lasix, echo 60 percent ejection fraction Mild congestive heart failure: Lasix Hypertension: Amlodipine Hypercholesterolemia: Lipitor 20 mg p.o. daily Chronic anemia: Iron tablets 325 mg p.o. b.i.d. Schizophrenia: Depakote 250 mg PO TID, Abilify 20 mg p.o. daily, benztropine 0.5 mg p.o. b.i.d. Date of Service: Jun 26, 2025 Billing Provider: SHAE STALEY MD Common Visit Codes: [id number] DISCH DAY >30min SHAE STALEY MD Jun 26, 2025 09:29
[2025-06-26 12:43] VITALS: BP 109/66; PULSE 77; RESP 16; TEMP 97.7; O2SAT 99
[2025-06-26 16:30] VITALS: BP 122/74; PULSE 73; RESP 18; TEMP 97.6; O2SAT 97
== END 2025-06-26 18:00 | DRG 291 ==
LOC: ER 19:32 → EDBD 19:32 → OVERFLOW 23:21 → CENTRAL 06-23 03:52
PROVIDERS: ADMIT Family Medicine; ATTEND Family Medicine
DX: I13.0 Hypertensive heart and chronic kidney disease with heart failure and stage 1 through stage 4 chronic kidney disease, or unspecified chronic kidney disease (principal); I50.33 Acute on chronic diastolic (congestive) heart failure; F31.9 Bipolar disorder, unspecified; F20.9 Schizophrenia, unspecified; E78.00 Pure hypercholesterolemia, unspecified; G20.A1 Parkinson's disease without dyskinesia, without mention of fluctuations; D64.9 Anemia, unspecified; N18.9 Chronic kidney disease, unspecified; Z79.899 Other long term (current) drug therapy
CPT/HCPCS: 36415; 71045; 80048; 80053; 81001; 83605; 83880; 84443; 84484; 85025; 85379; 86141; 87081; 93306; 93970; 96374; G0378